=== PATIENT | male | born 1980 | race Caucasian/White ===

== ENCOUNTER 2016-10-17 02:41 | Observation (INO) | payer OTHER ==
[~2016-10-17] VITALS: Ht 191.8 cm; Wt 189.0 kg
[2016-10-17] MEDS ORDERED: TOPROL XL25 MG PO (19:20)
[2016-10-17] MEDS ORDERED: GLUCOPHAGE1000 MG PO (19:20)
[2016-10-17] MEDS ORDERED: ZYRTEC DPS10 MG PO (19:21)
[2016-10-17] MEDS ORDERED: THERA1 EACH PO (19:21)
[2016-10-17] MEDS ORDERED: MOTRIN-DPS800 MG PO (19:21)
[2016-10-17] MEDS ORDERED: FLONASE 0.05% D16 GM NS (19:21)
[2016-10-17] MEDS ORDERED: VITAMIN D-32000 UNI1 PO (19:22)
[2016-10-17] MEDS ORDERED: ZYLOPRIM-DPS100 MG PO (19:22)
[2016-10-17] MEDS ORDERED: PRILOSEC DPS20 MG PO (19:22)
--- NOTE | 2016-10-17 19:35 | ER ---
ADMIT: 10/17/2016 RM/LOC: 525 [facility] MR#: [id number] [id number] [place], [place] [address] [address] [place] [address] Emergency Room Report SEX: M AGE: 36 : 1980 DATE: 10/17/2016 The patient is a 36-year-old male, who was transferred to the ER for chief complaint of food bolus. Allegedly, the patient was eating pork chop at 2030 hours and he felt that something is stuck in the throat, and after that he was not able to eat or drink and ingest solid or liquid food. The patient went to the ER and received glucagon which did not resolve the symptoms, and the patient was transferred for food bolus. In the ER, patient was in no obvious pain or distress, airway is not compromised and it is open. The patient is not drooling. The patient denies any nausea or vomiting or abdominal pain. head and neck are normal. Chest is clear. Abdomen is soft, and the rest of the physical exam is noncontributory and negative. The patient was admitted General Surgery for food bolus for possible EGD per their discretion. Geovanny Delatorre MD/ misha JOB #: [id number] CC: Gabino Avitia MD, Attending Physician Eufemia Quintanilla MD, Family Physician
--- NOTE | 2016-10-27 08:58 | OR ---
ADMIT: 10/17/2016 RM/LOC: 525 [facility] MR#: [id number] [address] [facility] [address] [place] [id number] [address] [place] [address] Operative/Delivery Room Report SEX: M AGE: 36 : 1980 SURGERY DATE: 10/17/2016 SURGEON: Tyler Leung MD PREPROCEDURE DIAGNOSIS: Esophageal food foreign body. POSTOPERATIVE DIAGNOSES: 1. Esophageal food foreign body. 2. Possibly eosinophilic esophagitis. PROCEDURE: EGD foreign body removal. INDICATIONS: The patient is a morbidly obese 36-year-old, who has had some dysphagia complaints for the past month who was eating pork and is unable to pass and presents for foreign body removal. FINDINGS: The patient was taken to endoscopy suite, IV sedation was given. He was placed in left lateral decubitus position. A bite block was placed in the patient's mouth. The gastroscope was introduced down the oropharynx, down the esophagus. Unfortunately, the patient was awoke, was biting down on my scope. I was able to eventually get the scope between the food bolus in the esophageal wall and pushed this food into the stomach. There was some mucosal splitting about mid esophageal where this was narrowed. There did not appear to be significant narrowing at the GE junction. I am wondering if the patient might have eosinophilic esophagitis. I did want to do esophageal biopsies, but the patient was at this point pretty clamp down on the scope and hard to sedate and difficult ventilation oxygenation due to a severe obesity. Therefore, since we had the obstruction relieved, I went ahead and just remove the scope, so we could take better care of the patient and reviewed findings within postprocedure. He tolerated the procedure without difficulty. Tyler Leung MD/ misha JOB #: [id number] CC: Gabino Avitia, Attending Physician Eufemia Quintanilla MD, Family Physician
--- NOTE | 2016-11-11 07:06 | HP ---
ADMIT: 10/17/2016 RM/LOC: 525 [facility] MR#: [id number] [facility] [address] [id number] [address] [place] [id number] Pre-OP History and Physical SEX: M AGE: 36 : 1980 DATE OF SERVICE: 10/17/2016 CHIEF COMPLAINT: Esophageal food bolus. HISTORY OF PRESENT ILLNESS: This is a pleasant 36-year-old male patient, who presented to the [facility] ER with complaint of esophageal food bolus. He has been unable to really tolerate his secretions. He was eating a pork chop, it sounds like earlier this evening. He still even this morning is still vomiting up his own secretions. He has no airway issues. He does have some discomfort in his mid chest, though, from his vomiting. PAST MEDICAL HISTORY: Illnesses include obesity, diabetes, and hypertension. CURRENT MEDICATIONS: 1. Metoprolol. 2. Zyrtec. 3. Metformin. 4. Multivitamin. 5. Flonase. 6. Ibuprofen. 7. Allopurinol. 8. Vitamin supplements. ALLERGIES: PENICILLIN, SULFA, AND LISINOPRIL. PREVIOUS SURGERIES: He has had a foot surgery in the past. SOCIAL HISTORY: He does chew tobacco. He denies any alcohol use. FAMILY HISTORY: Noncontributory. REVIEW OF SYSTEMS: His 10-point review of systems is negative with exception of his diabetes, hypertension, and also his current esophageal food bolus and nausea and vomiting associated with that. PHYSICAL EXAMINATION: GENERAL: He is alert. He is oriented. No acute distress. VITAL SIGNS: Stable. HEENT: Normal. ADMIT: 10/17/2016 RM/LOC: 525 [facility] MR#: [id number] [address] [id number] [address] [place], [place] [address] Pre-OP History and Physical SEX: M AGE: 36 : 1980 LUNGS: Clear. HEART: Regular. ABDOMEN: Obese, soft, nontender, and nondistended throughout. No mass or organomegaly appreciated. EXTREMITIES: Warm and pink without edema. ASSESSMENT: Esophageal food bolus. PLAN: I have recommended proceeding with EGD, food bolus removal, possible dilation, and possible biopsies. I have gone through risks and benefits of this procedure in depth with the patient. He understands all this and agrees to proceed. Gabino Avitia MD/ misha JOB #: [id number] CC: Gabino Avitia, Attending Physician Eufemia Quintanilla MD, Family Physician
== END 2016-10-17 09:40 | disposition home or self-care (01) ==
LOC: ER 02:41 → 5MS 03:14
PROVIDERS: ADMIT Surgery
PROC: 0DC58ZZ Extirpation of Matter from Esophagus, Via Natural or Artificial Opening Endoscopic (ICD-10-PCS; principal; 2016-10-17)
DX: T18.128A Food in esophagus causing other injury, initial encounter (principal); I10 Essential (primary) hypertension; E11.9 Type 2 diabetes mellitus without complications; M10.9 Gout, unspecified; E66.9 Obesity, unspecified; Z68.43 Body mass index [BMI] 50.0-59.9, adult; Z88.0 Allergy status to penicillin; Z88.2 Allergy status to sulfonamides; Z88.8 Allergy status to other drugs, medicaments and biological substances; Z98.890 Other specified postprocedural states; X58.XXXA Exposure to other specified factors, initial encounter